=== PATIENT | female | born 1945 | race African-American/Black ===

== ENCOUNTER → 2016-07-10 | Day surgery (SDC) | payer MEDICARE ==
[~2016-07-10] MED LIST: EPHEDRINE PF IN SALINE 50 MG/5 ML DISP.SYRIN. IV ONE; HYDR50TA6 PO; IV RINGERS,LACTATED 1000ML 1,000 ML IV SCH; LEVO25TA2 PO; LIDOCAINE 2% PF Vial for OR 5 ML VIAL. ONE; LISI10TA2 PO; MVI,10VI4 IV; PROPOFOL 40 ML IV ONE; TRAM50TA PO
--- NOTE | 2016-07-10 08:52 | PDOC1 ---
HISTORY & PHYSICAL H&P Brandi Lala [id number] 1945 06/20/2016 02:30 PM 05/[address] [facility], [facility] OUR PATIENTS COME FIRST [address] [place] [address] Ph. [phone] Patient: Brandi Lala Date of : 1945 Date: 06/20/2016 2:30 PM Visit Type: Consult This 70 year old female presents for H/o colon cancer and Hepatitis. History of Present Illness: 1. H/o colon cancer Prior screening: colonoscopy. Denies risk factors. Pertinent negatives include abdominal pain, change in bowel habits, change in stool caliber, constipation, decreased appetite, diarrhea, melena, nausea, rectal bleeding, vomiting, weight gain and weight loss. Additional information: No family history of colon cancer, No family history of Crohn's/colitis, No NSAID/ASA use and Patient had colon cancer discovered on colonoscopy and had surgery before 2011. She had colonoscopy 2011 which revealed evidence of colon resection and no recurrence. 2. Hepatitis Past history includes: hepatitis C (exposure:). No history of: alcoholic hepatitis, autoimmune hepatitis, diabetes, depression, cryoglobulinemia or acquired hemochromatosis. Pertinent negatives include abdominal pain, melena, nausea, vomiting, weight gain and weight loss. Additional information: Patient had history of Hepatitis C and had not elected to get any treatment before. Discussed with patient regarding the newer meds and patient had expressed the desire for treatment. INTAKE COMMENTS: Intake Comments: Nurse Note: the pt is here today to schedule a colonoscopy, her last one was in 2011. The pt has a hx of colon cancer PROBLEM LIST: Problem Description Onset Date Hypothyroidism 04/07/2015 Hepatitis C infection 04/07/2014 Primary malignant neoplasm of colon 06/28/2011 Benign essential hypertension 06/28/2011 Disease of liver 06/28/2011 Hyperlipidemia 06/28/2011 PAST MEDICAL/SURGICAL HISTORY (Detailed) Disease/disorder Onset Date Management Date Comments Cancer, colon 2010 partial colon resection Hepatitis C Hypertension Liver disease Osteoarthritis Medications (Active): Started Medication Directions Instruction Stopped 01/12/2016 hydrochlorothiazide 50 mg tablet take 1 tablet (50MG) by ORAL route every day 04/24/2016 hydrocodone 5 mg-acetaminophen 325 mg tablet take 1 tablet by oral route every 6 hours as needed for pain 01/12/2016 lisinopril 10 mg tablet take 1 tablet (10MG) by ORAL route every day 05/04/2016 Lyrica 75 mg capsule take 1 capsule by oral route 2 times every day samples given 01/12/2016 Synthroid 25 mcg tablet take 1 tablet by oral route every day 04/10/2016 tramadol 50 mg tablet take 1 Tablet by Oral route QID as needed. Allergies: Ingredient Reaction Medication Name Comment NO KNOWN ALLERGIES REVIEW OF SYSTEMS System Neg/Pos Details Constitutional Negative Chills, fever, malaise, weight gain and weight loss. ENMT Negative Sore throat. Eyes Negative Double vision. Respiratory Negative Dyspnea and wheezing. Cardio Negative Chest pain and irregular heartbeat/palpitations. GI Positive See HPI. GI Negative Abdominal pain, change in bowel habits, change in stool caliber, constipation, decreased appetite, diarrhea, melena, nausea, see HPI, rectal bleeding and vomiting. Negative Dysuria and hematuria. Endocrine Negative Cold intolerance and heat intolerance. Psych Negative Anxiety. Integumentary Negative Hives and rash. MS Negative Joint pain. Humberto/Lymph Negative Easy bleeding and easy bruising. Allergic/Immuno Negative Food allergies. VITAL SIGNS Time BP mm/Hg Pulse /min Resp /min Temp F Ht ft Ht in Ht cm Wt lb Wt kg BMI kg/ m2 BSA m2 O2 Sat% 2:55 PM 138/76 87 97.8 5.0 6.50 168.91 230.40 104.508 36.63 98 Time Measured by 2:55 PM Martha Monaco PHYSICAL EXAM: Exam Findings Details Constitutional Normal Well developed. Eyes Normal Conjunctiva - Right: Normal, Left: Normal. Sclera - Right: Normal, Left: Normal. Nasopharynx Normal Lips/teeth/gums - Normal. Neck Exam Normal Inspection - Normal. Thyroid gland - Normal. Respiratory Normal Inspection - Normal. Auscultation - Normal. Cardiovascular Normal Regular rate and rhythm. No murmurs, gallops, or rubs. Vascular Normal Pulses - Carotids: Normal, Femoral: Normal, Dorsalis pedis: Normal. Abdomen Normal Inspection - Normal. Anterior palpation - No guarding. No abdominal tenderness. No hepatic enlargement. No splenic enlargement. No hernia. No Ascites. Skin Normal Inspection - Normal. Extremity Normal No edema. Psychiatric Normal Oriented to time, place, person, and situation. Appropriate mood and effect. The patient was checked out at 3:11 PM by Martha Monaco. Assessment/Plan # Detail Type Description 1. Assessment Chronic hepatitis C without mention of hepatic coma (B18.2). Patient Plan LFT, Hep C viral load and genotype. AFP, Fibrosure. Patient had CT abd in April and is to repeat ct in October for cancer surveillance therefore no need for sonogram at this time. Plan Orders AFP, Fibrosure today, HCV Genotype today, HCV Quant PCR today , Hep A Ab IgM today and Hepatic Function Panel to be performed today. 2. Assessment History of colon cancer (Z85.038). Patient Plan [place] [facility] [place] Orders Further diagnostic evaluations ordered today include(s) Colonoscopy to be performed today. She is to schedule a follow-up visit with Doroteo Bobo MD upon completion of work-up Electronically signed by: Doroteo Bobo MD 06/20/2016 04:23 PM Document generated by: Doroteo Bobo 06/20/2016 04:23 PM Galileo Mast MD, Family Practice; Ricky Jones MD Internal Medicine; Olivia Anna MD, Internal Medicine; Jae Bobo MD Internal Medicine; Doroteo Bobo MD, Gastroenterology; Blayne Azul MD, Rheumatology, S. Chalo Osorio, Physical Medicine/Rehab JLaquita Miller APRN ------ 07/10/16 Patient seen and examined. No change in H&P. DOROTEO BOBO MD Jul 10, 2016 08:52
--- NOTE | 2016-07-10 09:23 | PDOC4 ---
GI OP Report - Dr. Gruber Date/Time DATE: 07/10/16 TIME: 09:21 Attending Physician Dell Gruber MD Referring Physician Indications Personal history of malignant neoplasm of the colon Pre-Op See the Anesthesia note for documentation of the administered medications Procedures Colonoscopy Findings - Diverticulosis in the sigmoid colon. - Patent end-to-end colo-colonic anastomosis, characterized by healthy appearing mucosa. - No specimens collected. Plan - Discharge patient to home. - Patient has a contact number available for emergencies. The signs and symptoms of potential delayed complications were discussed with the patient. Return to normal activities tomorrow. Written discharge instructions were provided to the patient. - Resume regular diet. - Continue present medications. - Repeat colonoscopy in 5 years for surveillance. - Return to my office as needed. EDLL GRUBER MD Jul 10, 2016 09:23
[2016-07-10 09:35] VITALS: BP 143/74
== END | disposition home or self-care (01) ==
LOC: ENDOS 07:23
PROVIDERS: ATTEND Internal Medicine Gastroenterology
DX: K57.30 Diverticulosis of large intestine without perforation or abscess without bleeding (principal); I10 Essential (primary) hypertension; E66.9 Obesity, unspecified; E03.9 Hypothyroidism, unspecified; M19.90 Unspecified osteoarthritis, unspecified site; Z98.41 Cataract extraction status, right eye; Z98.42 Cataract extraction status, left eye; Z86.19 Personal history of other infectious and parasitic diseases
CPT/HCPCS: 45378; J2704

== ENCOUNTER → 2016-07-20 | Outpatient (CLI) | payer MEDICARE ==
[2016-07-10 09:35] VITALS: BP 143/74
[~2016-07-20] MED LIST changes: -EPHEDRINE PF IN SALINE 50 MG/5 ML DISP.SYRIN. IV ONE; -IV RINGERS,LACTATED 1000ML 1,000 ML IV SCH; -LIDOCAINE 2% PF Vial for OR 5 ML VIAL. ONE; -PROPOFOL 40 ML IV ONE
--- NOTE | 2016-07-20 08:26 | RAD ---
Examination: Ultrasound abdomen complete History: History of hepatitis C Comparison: 01/20/2014 Findings: The visualized pancreas grossly appears unremarkable. Majority of the pancreas is not identified due to bowel gas. The liver measures 15 cm in length. The gallbladder is mildly distended. There are mucosal folds identified within the mildly distended gallbladder. The common bile duct measures 9.6 mm in transverse dimension. The right kidney measures 10.3 x 5.6 x 3.2 cm. The left kidney measures 10.4 x 6.0 x 6.4 cm There is a cystic structure measuring 7.2 x 4.6 x 6.6 cm in the left kidney. The spleen measures 14.6 cm The visualized aorta, IVC appears patent. Impression: 1. Dilated common bile duct again identified however compared to prior exam , the dilatation is mildly decreased. 2. 7.2 cm cystic structure identified in the left kidney likely known cyst is seen on prior CT from 06/23/2013.
== END | disposition home or self-care (01) ==
LOC: US 06:27
PROVIDERS: ATTEND Internal Medicine Gastroenterology
DX: K83.8 Other specified diseases of biliary tract (principal); K82.8 Other specified diseases of gallbladder
CPT/HCPCS: 76700

== ENCOUNTER → 2016-10-17 | Outpatient (CLI) | payer BC ==
[2016-07-10 09:35] VITALS: BP 143/74
[~2016-10-17] MED LIST changes: -LEVO25TA2 PO; +LEVO25TA55 PO
[2016-10-17 11:39] LABS: CREATININE 2.6 mg/dL (0.6-1.0); GFR 21.9
== END | disposition home or self-care (01) ==
LOC: MRI 10:33
PROVIDERS: ATTEND Internal Medicine Gastroenterology
DX: R77.2 Abnormality of alphafetoprotein (principal); K76.9 Liver disease, unspecified
CPT/HCPCS: 36415; 82565

== ENCOUNTER → 2016-10-24 | Outpatient (CLI) | payer BC ==
[2016-07-10 09:35] VITALS: BP 143/74
--- NOTE | 2016-10-24 10:09 | RAD ---
Indication:Hepatitis C. Renal failure Grayscale images of the abdomen were obtained. Comparison 07/20/2016 Liver:There is mild hepatomegaly. There is increased attenuation of the ultrasound beam by the liver compatible with fatty infiltration. A focal mass lesion is not seen in the visualized liver Gallbladder:Unchanged. No evidence of cholelithiasis. The common bile duct is prominent, more so than on the previous examination, now approaching 13 mm. Spleen:The spleen is at least at the upper limits of normal in size but unchanged when compared to the previous exam Pancreas:As visualized normal. Kidneys:The right kidney appears unremarkable. No hydronephrosis or mass is seen. Known cyst, measuring approximately 7.6 cm in greatest dimension associated with the left kidney is reproduced Abdominal aorta and IVC:Normal Ancillary findings:None Impression:Mild unchanged hepatomegaly. Slightly enlarged spleen but unchanged. Known left renal cyst reproduced. Dilated common bile duct to approximately 13 mm the etiology of which is is not clear on this exam
== END | disposition home or self-care (01) ==
LOC: US 08:03
PROVIDERS: ATTEND Internal Medicine
DX: T86.12 Kidney transplant failure (principal); B19.20 Unspecified viral hepatitis C without hepatic coma
CPT/HCPCS: 76700

== ENCOUNTER → 2016-11-10 | Outpatient (CLI) | payer BC, MEDICARE ==
[2016-07-10 09:35] VITALS: BP 143/74
[~2016-11-10] MED LIST changes: +CONTRAST GIVEN MC PRN
[2016-11-10] MEDS: IOHEXOL 240 MG/ML 50ML VIAL. PO ONE (11:47)
--- NOTE | 2016-11-10 12:45 | RAD ---
Indication: Malignancy. Restaging. Imaging through the chest, abdomen and pelvis was performed. Oral contrast was administered. IV contrast was not. The chest is compared to an examination 04/14/2016. The abdomen and pelvis are compared to an examination 01/12/2016. CT chest: Findings. The thoracic aorta is grossly normal. Coronary calcification is noted. There is no significant hilar or mediastinal adenopathy. An acute parenchymal infiltrate in either lung is not seen. Scattered areas of pleural-parenchymal scarring are seen appearing similar. A calcified granuloma in the right upper lobe is noted. There is a tiny parenchymal nodule in the left upper lobe appearing similar. There is no acute finding or evidence of metastatic disease to the chest. CT abdomen and pelvis: Findings. No definite hepatic anomaly is seen. The gallbladder is grossly normal. There is mild splenomegaly. Spleen is slightly larger than on the previous exam. No pancreatic abnormality is seen. There is a small periumbilical hernia appearing uncomplicated. There are no adrenal anomalies. There is a left renal cyst appearing similar. An acute finding in the abdomen is not seen. There are few retroperitoneal lymph nodes. These are probably incidental. They appear similar to the prior study. No acute or significant finding is seen in the pelvis. 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 There is slight compression involving L2 appearing similar. IMPRESSION: No acute finding seen in the chest, abdomen or pelvis. Stable small pulmonary nodule in the left upper lobe. Splenomegaly. The spleen is slightly larger than on the previous exam. Mild retroperitoneal likely incidental and appearing similar. No definite evidence of metastatic disease in the chest, abdomen or pelvis PQRS Compliance Statement: One or more of the following individualized dose reduction techniques were utilized for this examination: 1. Automated exposure control 2. Adjustment of the mA and/or kV according to patient size 3. Use of iterative reconstruction technique
== END | disposition home or self-care (01) ==
LOC: CT 15:38
PROVIDERS: ATTEND Internal Medicine Hematology & Oncology
DX: K42.9 Umbilical hernia without obstruction or gangrene (principal); N28.1 Cyst of kidney, acquired; C18.4 Malignant neoplasm of transverse colon; I25.10 Atherosclerotic heart disease of native coronary artery without angina pectoris; J84.10 Pulmonary fibrosis, unspecified; R91.1 Solitary pulmonary nodule; R16.1 Splenomegaly, not elsewhere classified
CPT/HCPCS: 71250; 74176; Q9966

== ENCOUNTER → 2017-04-02 | Outpatient (CLI) | payer BC ==
[2016-07-10 09:35] VITALS: BP 143/74
[~2017-04-02] MED LIST changes: -CONTRAST GIVEN MC PRN; +MULT10VI3 IV; -MVI,10VI4 IV
--- NOTE | 2017-04-02 10:05 | RAD ---
DATE: 04/02/2017 EXAM: DIGITAL SCREEN BILAT W/CAD HISTORY: Routine screening COMPARISON: Previous study from 02/08/2016 This study was interpreted with the benefit of Computerized Aided Detection (CAD). FINDINGS: Breast Density: SCATTERED The breast parenchyma shows scattered fibroglandular densities. Breast parenchyma level B. The skin and nipples are within normal limits. Benign bilateral calcifications. Area of asymmetry is seen in the posterior third of the right breast just below the posterior nipple line best seen on MLO view. Area of asymmetry is also seen in the anterior third of the left breast best seen on MLO view. No suspicious calcifications. IMPRESSION: Bilateral developing asymmetries as described above. These are most likely overlapping fibroglandular tissue. However, since these are new compared to previous study spot compression views are recommended. BI-RADS CATEGORY: 0 INCOMPLETE: NEED ADDITIONAL IMAGING EVAULATION AND/OR PRIOR MAMMOGRAMS FOR COMPARISON RECOMMENDED FOLLOW-UP: ADD ADDITIONAL IMAGING. Bilateral spot compression views recommended. PQRS compliance statement: Patient information was entered into a reminder system with a target due date for the next mammogram. Mammography is a sensitive method for finding small breast cancers, but it does not detect them all and is not a substitute for careful clinical examination. A negative mammogram does not negate a clinically suspicious finding and should not result in delay in biopsying a clinically suspicious abnormality. "Our facility is accredited by the [employer] Mammography Program."
== END | disposition home or self-care (01) ==
LOC: MAMMO 09:22
PROVIDERS: ATTEND Internal Medicine
DX: Z12.31 Encounter for screening mammogram for malignant neoplasm of breast (principal)
CPT/HCPCS: G0202; 77067

== ENCOUNTER → 2017-04-06 | Outpatient (CLI) | payer BC ==
[2016-07-10 09:35] VITALS: BP 143/74
--- NOTE | 2017-04-06 15:02 | RAD ---
DATE: 04/06/2017 EXAM: DIGITAL DIAGNOSTIC BILATERAL HISTORY: Callback for abnormality seen on the most recent screening mammogram. COMPARISON: Screening mammogram from 04/02/2017 This study was interpreted with the benefit of Computerized Aided Detection (CAD). FINDINGS: Breast Density: SCATTERED The breast parenchyma shows scattered fibroglandular densities. Breast parenchyma level B. Right-sided: The previously seen abnormality in the right breast demonstrates complete effacement on the spot compression views suggesting overlying glandular tissue. Left side: The previously seen abnormality in the left breast persists on the spot compression views. IMPRESSION: Right breast abnormality compatible with overlapping fibroglandular tissue. Persistent left breast asymmetry. Please see separate report on ultrasound of the left breast from the same day. BI-RADS CATEGORY: 3 PROBABLE BENIGN FINDING(S-SHORT INTERVAL FOLLOW-UP SUGGESTED RECOMMENDED FOLLOW-UP: 6M 6 MONTH FOLLOW-UP. Ultrasound of the left breast in 6 months recommended. PQRS compliance statement: Patient information was entered into a reminder system with a target due date for the next mammogram. Mammography is a sensitive method for finding small breast cancers, but it does not detect them all and is not a substitute for careful clinical examination. A negative mammogram does not negate a clinically suspicious finding and should not result in delay in biopsying a clinically suspicious abnormality. "Our facility is accredited by the [employer] Mammography Program."
--- NOTE | 2017-04-06 15:05 | RAD ---
Ultrasound left breast Indication: Left breast abnormality seen on most recent screening and diagnostic mammogram Technique: Grayscale and color Doppler ultrasound images of the left breast. Comparison: Same day diagnostic mammogram Findings: There is an oval-shaped hypoechoic mass in the left breast at 2:00 position approximately 6 cm from the nipple with lobulated margins measuring 1.2 x 0.4 x 0.7 cm without posterior features, internal vascularity or adjacent architectural distortion. The lesion is wider than taller. Second similar lesion is seen at 4:00 position approximately 6 cm from nipple measuring 1.1 x 0.4 x 0.6 cm. Impression: Two left breast lesions as described above with benign sonographic features. BI-RADS 3: Probably benign. Six-month follow-up ultrasound of the left breast recommended.
== END | disposition home or self-care (01) ==
LOC: MAMMO 13:03
PROVIDERS: ATTEND Internal Medicine
DX: R92.8 Other abnormal and inconclusive findings on diagnostic imaging of breast (principal)
CPT/HCPCS: 76641; G0204; 77066

== ENCOUNTER → 2017-05-02 | Outpatient (CLI) | payer BC ==
[2016-07-10 09:35] VITALS: BP 143/74
--- NOTE | 2017-05-02 13:32 | RAD ---
AP standing knees, single view, 05/02/2017: History: Degenerative joint disease A single AP standing view of both knees was obtained as requested. There is moderate marginal spurring bilaterally. The knee joint spaces are minimally narrowed. No fracture or dislocation is identified on this limited exam.
== END | disposition home or self-care (01) ==
LOC: RAD 12:03
PROVIDERS: ATTEND Physical Medicine & Rehabilitation
DX: M17.0 Bilateral primary osteoarthritis of knee (principal)
CPT/HCPCS: 73565

== ENCOUNTER → 2017-08-21 | Outpatient (CLI) | payer BC | END | disposition home or self-care (01) | LOC: ECHO 12:34 | DX: I11.9 Hypertensive heart disease without heart failure (principal); R60.0 Localized edema | CPT/HCPCS: 93306; 93970 ==

== ENCOUNTER 2017-09-12 09:55 | Outpatient (CLI) | payer BC | END 2017-10-08 | disposition home or self-care (01) | LOC: US 09:55 | DX: R92.8 Other abnormal and inconclusive findings on diagnostic imaging of breast (principal) | CPT/HCPCS: 76641 ==

== ENCOUNTER → 2017-11-09 | Outpatient (CLI) | payer BC ==
[~2017-11-09] MED LIST changes: +CONTRAST GIVEN. MC; -HYDR50TA6 PO; +IOHEXOL 240 MG/ML 50ML VIAL. PO; -LEVO25TA55 PO; -LISI10TA2 PO; -MULT10VI3 IV; -TRAM50TA PO
== END | disposition home or self-care (01) ==
LOC: CT 11:54
DX: C18.4 Malignant neoplasm of transverse colon (principal); J84.10 Pulmonary fibrosis, unspecified; I11.9 Hypertensive heart disease without heart failure; E03.9 Hypothyroidism, unspecified; R16.1 Splenomegaly, not elsewhere classified
CPT/HCPCS: 71250; 74176; Q9966